=== PATIENT | male | born 1990 | race African-American/Black ===

== ENCOUNTER 2019-08-23 10:18 | Emergency (ER) | payer MEDICAID ==
[~2019-08-23] VITALS: Ht 175.3 cm; Wt 77.1 kg
== END 2019-08-23 12:12 | disposition home or self-care (01) ==
LOC: ED 10:18
DX: R10.9 Unspecified abdominal pain (principal); F43.9 Reaction to severe stress, unspecified; F41.9 Anxiety disorder, unspecified; Z87.891 Personal history of nicotine dependence
CPT/HCPCS: 80053; 81001; 83690; 85025; 99284

== ENCOUNTER 2019-10-18 09:06 | Emergency (ER) | payer MEDICAID ==
[~2019-10-18] VITALS: Ht 175.3 cm; Wt 77.1 kg
--- OUTSIDE RECORDS SUMMARY | ~2019-10-18 | XMS | Encounter Summary ---
Demographics + + + | Address | [address] | | | [place] [address] | + + + | Home Phone | | + + + | Preferred Language | Unknown | + + + | Marital Status | Single | + + + | Quaker Affiliation | NON | + + + | Race | Black or | + + + | Ethnic Group | Not or | + + + Author + + + | Author | [facility] | + + + | Organization | [facility] | + + + | Address | Unknown | + + + | Phone | Unavailable | + + + Support + + +---------+ + | Name | Relationship | Address | Phone | + + +---------+ + | Kamini Gutierrez | ECON | Unknown | | + + +---------+ + Care Team Providers + +------+ + | Care Photography Intern Name | Role | Phone | + +------+ + | No Pcp Per Patient | PCP | Unavailable | + +------+ + Encounter Details +--------+ + + + + | Date | Type | Department | Care Team | Description | +--------+ + + + + | 01/12/ | Results | [facility] | Peg Wang, | | | 2017 | Only | [address] | [place] | | | | | [place], [place] | | | | | | [address] | | | +--------+ + + + + Social History + +-------+ +--------+------+ | Tobacco Use | Types | Packs/Day | Years | Date | | | | | Used | | + +-------+ +--------+------+ | Current Some Day | | | | | | Smoker | | | | | + +-------+ +--------+------+ + +---+---+---+ | Smokeless Tobacco: | | | | | Never Used | | | | + +---+---+---+ + + +---------+ + | Alcohol Use | Drinks/Week | oz/Week | Comments | + + +---------+ + | Yes | | | | + + +---------+ + + + + | Sex Assigned at | Date Recorded | | | | + + + | Not on file | | + + + + + + + | Job Start Date | Occupation | Industry | + + + + | Not on file | Not on file | Not on file | + + + + + + + + | Travel History | Travel Start | Travel End | + + + + + + | No recent travel history available. | + + documented as of this encounter Plan of Treatment Not on filedocumented as of this encounter Procedures + +--------+ + + + | Procedure Name | Priori | Date/Time | Associated Diagnosis | Comments | | | ty | | | | + +--------+ + + + | X-RAY HAND 3 VIEWS | Urgent | 01/12/2018 | | Results for this | | RIGHT | | 11:51 AM | | procedure are in the | | | | PDT | | results section. | + +--------+ + + + documented in this encounter Results X-RAY HAND 3 VIEWS RIGHT (01/12/2018 11:51 AM PDT) + + | Specimen | + + | | + + + + + | Narrative | Performed At | + + + | Patient:ANNEMARIE BARROW | [facility] | | | RADIOLOGY | | Diagnostic Imaging Accession Number | | | Exam Exam Date/Time | | | Ordering Physician [id number] XR Hand | | | Complete Right 01/12/2018 12:01 PDT Peg Wang | | | Report EXAM DESCRIPTION: XR HAND COMPLETE RIGHT CLINICAL | | | HISTORY: Injured. COMPARISON: None TECHNIQUE: Three views. | | | FINDINGS: Hairline nondisplaced fracture mid 3rd metacarpal shaft | | | is present with oblique fracture fragment extending proximally. No | | | definite joint offset or involvement is identified. Soft tissue | | | swelling is present overlying the dorsum of the hand. The bones, | | | joints and soft tissues appear otherwise intact. IMPRESSION: | | | Hairline spiral fracture 3rd metacarpal running longitudinally. No | | | joint extension is identified. Final Transcribed: | | | 01/12/2018 12:13 pm CLR Signed: 01/12/2018 3:30 pm | | | Alexis Kline MD | | + + + + -------+ | Procedure Note | + -------+ | Interface, Lab Results [place] - 01/13/2018 12:11 AM PDT Patient:ANNEMARIE BARROW | | | | Diagnostic ImagingAccession Number Exam Exam Date/Time | | Ordering [id number] [id number] Hand Complete Right 01/12/2018 | | 12:01 PDT Peg Wang PAReportEXAM DESCRIPTION:XR HAND COMPLETE RIGHTCLINICAL | | HISTORY:Injured.COMPARISON:NoneTECHNIQUE:Three views.FINDINGS:Hairline nondisplaced | | fracture mid 3rd metacarpal shaft is present with oblique fracture fragmentextending | | proximally. No definite joint offset or involvement is identified. Soft tissue | | swellingis present overlying the dorsum of the hand.The bones, joints and soft tissues | | appear otherwise intact.IMPRESSION:Hairline spiral fracture 3rd metacarpal running | | longitudinally. No joint extension is identified. Final Transcribed: 01/12/2018 | | 12:13 pm CLR Signed: 01/12/2018 3:30 pm Alexis Kline MD | | | |CLINICAL HISTORY: | |Injured. | | | |COMPARISON: | |None | | | |TECHNIQUE: | |Three views. | | | |FINDINGS: | |Hairline nondisplaced fracture mid 3rd metacarpal shaft is present with oblique fracture fr agment | |extending proximally. No definite joint offset or involvement is identified. Soft tissue sw elling | |is present overlying the dorsum of the hand. | | | |The bones, joints and soft tissues appear otherwise intact. | | | |IMPRESSION: | |Hairline spiral fracture 3rd metacarpal running longitudinally. No joint extension is ident ified. | | | | Final | | | |Transcribed: 01/12/2018 12:13 pm CLR | |Signed: 01/12/2018 3:30 pm Alexis Kline MD | + -------+ + + + + + | Performing | Address | City/State/Zipcode | Phone Number | | Organization | | | | + + + + + | [facility] | [address] | [place], [place] | [phone] | | | | [address] | | + + + + + documented in this encounter Visit Diagnoses Not on filedocumented in this encounter"
--- OUTSIDE RECORDS SUMMARY | ~2019-10-18 | XMS | Clinical Summary ---
Demographics + + + | Address | [address] | | | [place] [address] | + + + | Home Phone | | + + + | Preferred Language | Unknown | + + + | Marital Status | Single | + + + | Anglican Affiliation | NON | + + + | Race | Black or | + + + | Ethnic Group | Not or | + + + Author + + + | Author | [facility] | + + + | Organization | [facility] | + + + | Address | Unknown | + + + | Phone | Unavailable | + + + Support + + +---------+ + | Name | Relationship | Address | Phone | + + +---------+ + | Kamini Hill | ECON | Unknown | | + + +---------+ + Care Team Providers + +------+ + | Care Zigzag Stitcher Name | Role | Phone | + +------+ + | No Pcp Per Patient | PCP | Unavailable | + +------+ + Source Comments SAKSHI is fully live on both [facility] and [facility] InPatient.[facility] Allergies No Known Allergies Medications No known medications Active Problems Not on file Social History + +-------+ +--------+------+ | Tobacco [...] recent travel history available. | + + Last Filed Vital Signs + + + + + | Vital Sign | Reading | Time Taken | Comments | + + + + + | Blood Pressure | 121/81 | 01/10/2014 1:00 AM | | | | | PDT | | + + + + + | Pulse | 62 | 01/10/2014 1:00 AM | | | | | PDT | | + + + + + | Temperature | 36.8 C (98.3 F) | 01/09/2014 11:13 PM | | | | | PDT | | + + + + + | Respiratory Rate | 13 | 01/10/2014 1:00 AM | | | | | PDT | | + + + + + | Oxygen Saturation | 98% | 01/10/2014 1:00 AM | | | | | PDT | | + + + + + | Inhaled Oxygen | - | - | | | Concentration | | | | + + + + + | Weight | 67.1 kg (148 lb) | 01/09/2014 8:01 PM | | | | | PDT | | + + + + + | Height | - | - | | + + + + + | Body Mass Index | - | - | | + + + + + Plan of Treatment + + + + + | Health Maintenance | Due Date | Last Done | Comments | + + + + + | Pneumococcal | | | | | vaccination (1 of 1 | 7 | | | | - PPSV23) | | | | + + + + + | Influenza (Flu) | | | | | vaccination (#1) | 9 | | | + + + + + Results Not on filefrom Last 3 Months Insurance + +--------+ +--------+-------+---------+--------+ | Payer | Benefi | Subscriber | Effect | Phone | Address | Type | | | t Plan | ID | eileen | | | | | | / | | Dates | | | | | | Group | | | | | | + +--------+ +--------+-------+---------+--------+ | INSPECTOR GOVERNMENT PROPERTY MEDICAID | INSPECTOR GOVERNMENT PROPERTY | xxxxxxxx | Effect | | | Medica | | | CAREOR | | eileen | | | id | | | | | for | | | | | | HEALTH | | all | | | | | | SHARE | | dates | | | | + +--------+ +--------+-------+---------+--------+ | INSPECTOR GOVERNMENT PROPERTY MEDICAID | INSPECTOR GOVERNMENT PROPERTY | xxxxxxxx | | | | Medica | | | ODELL | | 014-Pr | | | id | | | | | esent | | | | | | HEALTH | | | | | | | | SHARE | | | | | | + +--------+ +--------+-------+---------+--------+ + +--------+ +--------+ + + | Guarantor Name | Accoun | Relation to | Date | Phone | Billing Address | | | t Type | Patient | of | | | | | | | | | | + +--------+ +--------+ + + | El Mcdonald | Person | Self | [birth year] | [address] | | | al/Fam | | 1990 | [address] | [place] [address] | | | ori | | | 8 (Home) | | + +--------+ +--------+ + + | El Mcdonald | Person | Self | [birth year] | [address] | | | al/Fam | | 1990 | | [place] [address] | | | ori | | | 8 (Home) | | + +--------+ +--------+ + +"
--- OUTSIDE RECORDS SUMMARY | ~2019-10-18 | XMS | Clinical Summary ---
Demographics + + + | Address | [address] | | | [place] [address] | + + + | Home Phone | | + + + | Preferred Language | Unknown | + + + | Marital Status | Single | + + + | Protestant Affiliation | NON | + + + [...] Team Providers + +------+ + | Care Automatic Coin Machine Mechanic Name | Role | Phone | + +------+ + | No Pcp Per Patient | PCP | Unavailable | + +------+ + Source Comments SAKSHI is fully live on both [facility] and [facility] InPatient.[facility] Allergies No Known [...] | | | + +--------+ +--------+-------+---------+--------+ | SOLAR SALES REPRESENTATIVE AND ASSESSOR MEDICAID | SOLAR SALES REPRESENTATIVE AND ASSESSOR | xxxxxxxx | Effect | | | Medica | | | CAREOR | | eileen | | | id | | | | | for | | | | | | HEALTH | | all | | | | | | SHARE | | dates | | | | + +--------+ +--------+-------+---------+--------+ | SOLAR SALES REPRESENTATIVE AND ASSESSOR MEDICAID | SOLAR SALES REPRESENTATIVE AND ASSESSOR | xxxxxxxx | | | | Medica [...] al/Fam | | 1990 | [address] | [place] [address] | | | ori | | | 8 (Home) | | + +--------+ +--------+ + + | El Mcdonald | Person | Self | [birth year] | [address] | | | al/Fam | | 1990 | | [place] [address] | | | ori | | | 8 (Home) | | + +--------+ +--------+ + +"
--- OUTSIDE RECORDS SUMMARY | ~2019-10-18 | XMS | Encounter Summary ---
Demographics + + + | Address | [address] | | | [place] [address] | + + + | Home Phone | | + + + | Preferred Language | Unknown | + + + | Marital Status | Single | + + + | Hinduism Affiliation | NON | + + + [...] Team Providers + +------+ + | Care Converting Operator Name | Role | Phone | + +------+ + | No Pcp Per Patient | PCP | Unavailable | + +------+ + Encounter Details +--------+ + + + + | Date | Type | Department | Care Team | Description | +--------+ + + + + | 01/12/ | ED Progress | [facility] | Peg Wang, | ED Progress Note | | 2018 | | [address] | [place] | | | | Note-Transc | [place] | | | | | [place] | [address] | | | +--------+ + + + [...] Not on filedocumented as of this encounter Visit Diagnoses Not on filedocumented in this encounter"
--- OUTSIDE RECORDS SUMMARY | ~2019-10-18 | XMS | Encounter Summary ---
Demographics + + + | Address | [address] | | | [place] [address] | + + + | Home Phone | | + + + | Preferred Language | Unknown | + + + | Marital Status | Single | + + + | Sikhism Affiliation | NON | + + + | Race | Black or | + + + | Ethnic Group | Not or | + + + Author + + + | Author | [facility] [employer] [facility] | + + + | Organization | [facility] | + + + | Address | Unknown | + + + | Phone | Unavailable | + + + Support + + +---------+ + | Name | Relationship | Address | Phone | + + +---------+ + | Kamini Gutierrez | ECON | Unknown | | + + +---------+ + Care Team Providers + +------+ + | Care Hemodialysis Patient Care Specialist Name | Role | Phone | + +------+ + | No Pcp Per Patient | PCP | Unavailable | + +------+ + Reason for Visit + + + | Reason | Comments | + + + | Intoxication | use of recently | + + + Encounter Details +--------+ + + + + | Date | Type | Department | Care Team | Description | +--------+ + + + + | 01/09/ | Emergency | [facility] | Vaibhav Holland, | | | 2013 - | | Department [address] | [address] | | | | | [address] | [address] | | | 01/10/ | | [facility] | [place], [place] | | | 2013 | | [place], [place] | [address] | | | | | [address] | [phone] | | | | | [phone] | | | +--------+ + + + [...] + + documented as of this encounter Last Filed Vital Signs + + + [...] + + + documented in this encounter Discharge Instructions Instructions Sunil Blanco MD - 01/10/2014Thank you for choosing the [facility] Emergency Dep artment for your care today. You were seen for insomnia related to cocaine use. We performed the following tests, with the following results: electrocardiogram (EKG), whic h showed a significant abnormality, suggestive but not diagnostic of Brugada Syndrome. You need to be seen by the Cardiologists. Please call the phone number above to make an appoint ment at your earliest convenience. We also recommend you establish care with a Primary Care Provider. If you would like to sc hedule an appointment in the Family Medicine clinic at [facility], please call: [phone]. For an appointment in the [facility] Internal Medicine clinic, please call: [phone]. Please return to the [facility] Emergency Department if you experience any sudden or concerning c hanges to your health, including chest pain, or sudden loss of consciousness. Note: If you had labs (blood tests) or imaging (CT scan or x-rays) during your visit, any o f the results of these tests may be preliminary. Our usual practice is to follow up on test s within a few days of a patient's discharge from the Emergency Department and notify patien ts of updated data or new developments, which may include changes to your treatment plan. I f this happens, we will contact you. If you need to update your contact information, please alert your nurse or physician before you leave the Emergency Department. documented in this encounter Plan of Treatment Not on filedocumented as of this encounter Procedures + +--------+ + + + | Procedure Name | Priori | Date/Time | Associated Diagnosis | Comments | | | ty | | | | + +--------+ + + + | 12 LEAD ECG | Routin | 01/10/2014 | | Results for this | | | e | 12:49 AM | | procedure are in the | | | | PDT | | results section. | + +--------+ + + + | 12 LEAD ECG | Routin | 01/09/2014 | | Results for this | | | e | 9:12 PM | | procedure are in the | | | | PDT | | results section. | + +--------+ + + + documented in this encounter Results 12 LEAD ECG (01/10/2014 12:49 AM PDT) + + + + + + | Component | Value | Ref Range | Performed | Pathologist | | | | | At | Signature | + + + + + + | VENTRICULAR | 68 | bpm | [facility] | | | RATE | | | OF | | | | | | CARDIOLOGY | | + + + + + + | ATRIAL RATE | 69 | bpm | [facility] | | | | | | OF | | | | | | CARDIOLOGY | | + + + + + + | P-R | 148 | ms | [facility] | | | INTERVAL | | | OF | | | | | | CARDIOLOGY | | + + + + + + | P AXIS | 18 | deg | [facility] | | | | | | OF | | | | | | CARDIOLOGY | | + + + + + + | QRS | 90 | ms | [facility] | | | DURATION | | | OF | | | | | | CARDIOLOGY | | + + + + + + | QT | 436 | ms | [facility] | | | | | | OF | | | | | | CARDIOLOGY | | + + + + + + | QTC-CHERIETT | 464 | ms | [facility] | | | | | | OF | | | | | | CARDIOLOGY | | + + + + + + | R AXIS | -22 | deg | [facility] | | | | | | OF | | | | | | CARDIOLOGY | | + + + + + + | T AXIS | 30 | deg | [facility] | | | | | | OF | | | | | | CARDIOLOGY | | + + + + + + | ECG | SINUS ARRHYTHMIA, RATE | | [facility] | | | IMPRESSION | 53-79ST ELEV, PROBABLE | | OF | | | | NORMAL EARLY REPOL | | CARDIOLOGY | | | | PATTERN- OTHERWISE | | | | | | NORMAL ECG | | | | | | -Electronically signed | | | | | | by: DEWEY MOORE | | | | | | 01-12-2014 21:20:15 | | | | + + + + + + + + | Specimen | + + | | + + + + + | Narrative | Performed At | + + + | | [facility] | | | CARDIOLOGY | + + + + + | Procedure Note | + + | Shaun Mars - 01/10/2014 12:59 AM PDT | + + + + + + + | Performing | Address | City/State/Zipcode | Phone Number | | Organization | | | | + + + + + | [facility] | [address] | [place], [place] | | | CARDIOLOGY | [address] | [address] | | + + + + + 12 LEAD ECG (01/09/2014 9:12 PM PDT) + + + + + + | Component | Value | Ref Range | Performed | Pathologist | | | | | At | Signature | + + + + + + | VENTRICULAR | 76 | bpm | [facility] | | | RATE | | | OF | | | | | | CARDIOLOGY | | + + + + + + | ATRIAL RATE | 76 | bpm | [facility] | | | | | | OF | | | | | | CARDIOLOGY | | + + + + + + | P-R | 136 | ms | [facility] | | | INTERVAL | | | OF | | | | | | CARDIOLOGY | | + + + + + + | P AXIS | 38 | deg | [facility] | | | | | | OF | | | | | | CARDIOLOGY | | + + + + + + | QRS | 82 | ms | [facility] | | | DURATION | | | OF | | | | | | CARDIOLOGY | | + + + + + + | QT | 400 | ms | [facility] | | | | | | OF | | | | | | CARDIOLOGY | | + + + + + + | QTC-BAZETT | 450 | ms | [facility] | | | | | | OF | | | | | | CARDIOLOGY | | + + + + + + | R AXIS | -29 | deg | [facility] | | | | | | OF | | | | | | CARDIOLOGY | | + + + + + + | T AXIS | 36 | deg | [facility] | | | | | | OF | | | | | | CARDIOLOGY | | + + + + + + | ECG | SINUS RHYTHMST ELEV, | | [facility] | | | IMPRESSION | PROBABLE NORMAL EARLY | | OF | | | | REPOL PATTERN- NORMAL | | CARDIOLOGY | | | | ECG -Electronically | | | | | | signed by: DEWEY MOORE | | | | | | 01-12-2014 21:39:45 | | | | + + + + + + + + | Specimen | + + | | + + + + + | Narrative | Performed At | + + + | | [facility] | | | CARDIOLOGY | + + + + + | Procedure Note | + + | Shaun Mars - 01/10/2014 2:54 PM PDT | + + + + + + + | Performing | Address | City/State/Zipcode | Phone Number | | Organization | | | | + + + + + | [facility] | [address] | [place], [place] | | | CARDIOLOGY | [facility] | [address] | | + + + + + documented in this encounter Visit Diagnoses + + | Diagnosis | + + | Cocaine use - Primary Cocaine abuse, unspecified | + + | Abnormal ECG Nonspecific abnormal electrocardiogram (ECG) (EKG) | + + documented in this encounter"
--- OUTSIDE RECORDS SUMMARY | ~2019-10-18 | XMS | Encounter Summary ---
Demographics + + + | Address | [address] | | | [place] [address] | + + + | Home Phone | | + + + | Preferred Language | Unknown | + + + | Marital Status | Single | + + + | Jain Affiliation | NON | + + + | Race | Black or | + + + | Ethnic Group | Not or | + + + Author + + + | Author | [facility] | + + + | Organization | [facility] | + + + | Address | Unknown | + + + | Phone | Unavailable | + + + Support + + +---------+ + | Name | Relationship | Address | Phone | + + +---------+ + | Kamini Gutierrez | ECON | Unknown | | + + +---------+ + Care Team Providers + +------+ + | Care Stapler Coil Unit Name | Role | Phone | + [...] | | 2013 - | | Department [address] | [address] | | | | | [address] | [address] | | | 01/10/ | | [facility] | [place], [place] | | | 2013 | | [place], [place] | [address] | | | | | [address] | [phone] | | | | | [phone] | | | +--------+ + + + [...] MD - 01/10/2014Thank you for choosing the [facility] Emergency Dep artment for your care today. [...] appointment in the Family Medicine clinic at [facility], please call: [phone]. For an appointment in the [facility] Internal Medicine clinic, please call: [phone]. Please return to the [facility] Emergency Department if you experience any sudden [...] + + | [facility] | [address] | [place], [place] | | | CARDIOLOGY | [address] | [address] | | + + + + + [...] [facility] | [address] | [place], [place] | | | CARDIOLOGY | [facility] | [address] | | + + + + + documented in this encounter Visit Diagnoses + + | Diagnosis | + + | Cocaine use - Primary Cocaine abuse, unspecified | + + | Abnormal ECG Nonspecific abnormal electrocardiogram (ECG) (EKG) | + + documented in this encounter"
--- OUTSIDE RECORDS SUMMARY | ~2019-10-18 | XMS | Encounter Summary ---
Demographics + + + | Address | [address] | | | [place] [address] | + + + | Home Phone | | + + + | Preferred Language | Unknown | + + + | Marital Status | Single | + + + | Church Affiliation | NON | + + + [...] Team Providers + +------+ + | Care Hospital Corpsman Name | Role | Phone | + [...] [place] | | | | Note-Transc | [place] | | | | | yony | [address] | | | +--------+ + + + [...]
--- OUTSIDE RECORDS SUMMARY | ~2019-10-18 | XMS | Encounter Summary ---
Demographics + + + | Address | [address] | | | [place] [address] | + + + | Home Phone | | + + + | Preferred Language | Unknown | + + + | Marital Status | Single | + + + | Methodist Affiliation | NON | + + + [...] Team Providers + +------+ + | Care Access Rep Name | Role | Phone | + [...] | [address] | | | | | [place], [place] | | | | | | [address] | | | +--------+ + + + [...] Exam Date/Time | | | Ordering Physician [id number] XR Hand | | | Complete Right [...] Number Exam Exam Date/Time | | Ordering [id number] [id number] Hand Complete Right 01/12/2018 | | [...] RADIOLOGY | [address] | [place], [place] | [phone] | | | | [address] | | + + + + + documented in this encounter Visit Diagnoses Not on filedocumented in this encounter"
== END 2019-10-18 09:21 | disposition home or self-care (01) ==
LOC: ED 09:06
DX: L29.9 Pruritus, unspecified (principal)